=== PATIENT | female | born 1955 | race African-American/Black ===

== ENCOUNTER 2020-07-28 09:28 | Day surgery (SDC) | payer BC ==
[2020-07-28] VITALS (8 sets, daily range): BP systolic 117–133; BP diastolic 64–76
[~2020-07-28] VITALS: Ht 172.7 cm; Wt 72.6 kg
[~2020-07-28 09:28] MED LIST: LOSARTAN POTASS50 MG ORAL; LR 1000ml 1,000 ML IVLG SCH; METHOTREXATE2.5 MG PO; SULFASALAZINE500 MG ORAL; XELJANZ XR22 MG PO
[2020-07-28] MEDS ORDERED: LR 1000ml ONE (10:00)
[2020-07-28] MEDS ORDERED: Lidocaine 1% MPF 10mg/ml 5ml ONE (10:00)
--- NOTE | 2020-07-28 10:06 | Short Stay Surgery H&P ---
History of Present Illness History of Present Illness Chief Complaint see H&P attached HPI Jennifer Burgess is a 64 year old female who was admitted on for Abdominal Pain, History Of Colon Pollups Patient History Allergies: Coded Allergies: Cultivated Oat Pollen (Verified Allergy, Severe, sneezing, rash , 07/25/20) Dust (Verified Allergy, Severe, sneezing, rash, 07/25/20) SHELLFISH DERIVED (Verified Allergy, Severe, anaphylactic shock, 07/25/20) Medication History Scheduled Losartan Potassium* (Losartan Potassium*), 50 MG ORAL DAILY, (Reported) Methotrexate Sodium* (Methotrexate*), 2.5 MG PO ONCE A WEEK, (Reported) Sulfasalazine* (Azulfidine*), 500 MG ORAL BID, (Reported) Miscellaneous Medications Tofacitinib Citrate (Xeljanz Xr), 11 MG PO, (Reported) Physical Exam Vital Signs Last Vital Signs Date Time Temp Pulse Resp B/P (MAP) Pulse Ox O2 Delivery O2 Flow Rate FiO2 07/28/20 09:58 97.9 63 18 133/72 100 Room Air Plan Attestation Are the patient's medical conditions optimized for surgery? Boris Calix MD Jul 28, 2020 10:06
--- NOTE | 2020-07-28 10:07 | Pre-Procedure Note/Attestation ---
Pre-Procedure Note/Attestation Complete Prior to Procedure Planned Procedure: not applicable Procedure Narrative: esophagogastroduodenoscopy colon Indications for Procedure Pre-Operative Diagnosis: abd pain h/o polyp Attestation I attest that I discussed the nature of the procedure; its benefits; risks and complications; and alternatives (and the risks and benefits of such alternatives ), prior to the procedure, with the patient (or the patient's legal field marketing representative). I attest that, if there was a reasonable possibility of needing a blood transfusion, the patient (or the patient's legal field marketing representative) was given the [facility] standardized written summary, pursuant to the [place] Blood Safety Act ([place] Health and Safety Code # 1645, as amended). I attest that I re-evaluated the patient just prior to the surgery and that there has been no change in the patient's H&P, except as documented below: Boris Calix MD Jul 28, 2020 10:07
--- NOTE | 2020-07-28 10:49 | Endoscopy Procedure Note ---
Endoscopy Procedure Note General Indication for Procedure: abd pain, h/o polyp Procedures Performed: EGD, colonoscopy Operative Findings/Diagnosis: antrum gastritis, rare tic, dim polyp x2 Specimen: yes Pt Tolerated Procedure Well: Yes Estimated Blood Loss: none Anesthesia Anesthesiologist: SAMIRA Anesthesia: MAC Medications Medication Given: see anesthesia record Inserted Devices Implant(s) used?: No GI Core Measures 50 yrs or older w/o bx or poly: Not Applicable 10yrs. F/U recommended: Not Applicable Boris Calix MD Jul 28, 2020 10:49
--- NOTE | 2020-07-28 10:50 | Brief Operative Note ---
Immediate Post Operative Note Operative Note Chief Complaint: abd pain , h/o polyp Pre-op Diagnosis: abd pain h/o polyp Procedure: esophagogastroduodenoscopy bx, colo bx Specimen: yes Complications: none Fluids: per anesthesia Implant(s) used?: No Boris Calix MD Jul 28, 2020 10:50
--- NOTE | 2020-07-28 10:51 | Immediate Post-Op Evaluation ---
Immediate Post-Op Evalulation Immediate Post-Op Evalulation Procedure: EGD/Colonoscopy Date of Evaluation: Jul 28, 2020 Time of Evaluation: 10:51 IV Fluids: 800 Blood Pressure Systolic: 120 Blood Pressure Diastolic: 64 Pulse Rate: 54 Respiratory Rate: 14 O2 Sat by Pulse Oximetry: 99 Temperature (Fahrenheit): 97.9 Nausea: No Vomiting: No Complications none Patient Status: awake, reacts, patent Hydration Status: adequate Drug: none Terese Lemon CRNA Jul 28, 2020 10:51
--- NOTE | 2020-07-28 10:53 | Anethesia Preoperative Eval ---
Anesthesia Pre-op PMH/ROS General Date of Evaluation: Jul 28, 2020 Time of Evaluation: 10:00 Anesthesiologist: alex ASA Score: ASA 2 Mallampati Score Class I : Soft palate, uvula, fauces, pillars visible Class II: Soft palate, uvula, fauces visible Class III: Soft palate, base of uvula visible Class IV: Only hard plate visible Mallampati Classification: Class II Surgeon: jake Diagnosis: screening Surgical Procedure: EGD/Colonoscopy Anesthesia History: none Family History: no anesthesia problems Allergies: Coded Allergies: Cultivated Oat Pollen (Verified Allergy, Severe, sneezing, rash , 07/25/20) Dust (Verified Allergy, Severe, sneezing, rash, 07/25/20) SHELLFISH DERIVED (Verified Allergy, Severe, anaphylactic shock, 07/25/20) Medications: see eMAR Patient NPO?: Yes NPO Date: Jul 28, 2020 NPO Time: 00:01 Past Medical History Cardiovascular: Reports: HTN; Denies: CAD, [place], valve dz, arrhythmia, other Pulmonary: Denies: asthma, COPD, [place], other Gastrointestinal/Genitourinary: Reports: GERD; Denies: CRI, ESRD, other Neurologic/Psychiatric: Denies: dementia, CVA, depression/anxiety, TIA, other Endocrine: Denies: DM, hypothyroidism, steroids, other HEENT: Denies: cataract (L), cataract (R), glaucoma, [place] (L), [place] (R), other Hematology/Immune: Denies: anemia, DVT, bleeding disorder, other Musculoskeletal/Integumentary: Denies: OA, RA, DJD, DDD, edema, other Anesthesia Pre-op Phys. Exam Physician Exam Last Vital Signs Date Time Temp Pulse Resp B/P (MAP) Pulse Ox O2 Delivery O2 Flow Rate FiO2 07/28/20 10:06 Room Air 07/28/20 09:58 97.9 63 18 133/72 100 Constitutional: NAD Neurologic: CN 2-12 intact Cardiovascular: RRR Respiratory: CTA Gastrointestinal: S/NT/ND Airway Exam Mallampati Classification 2 Mallampati Score: Class II MO: full ROM: full Dentures: no upper, no lower Anesthesia Pre-op A/P Studies Pre-op Studies: EKG - SR Risk Assessment & Plan Assessment: covid neg Plan: mac Status Change Before Surgery: No Pre-Antibiotics Drug: none Terese Lemon CRNA Jul 28, 2020 10:53
--- NOTE | 2020-07-28 12:03 | 48 Hour Post Anesthesia Eval ---
Post Anesthesia Evaluation Procedure: EGD/Colonoscopy Date of Evaluation: Jul 28, 2020 Time of Evaluation: 12:02 Blood Pressure Systolic: 125 0: 76 Pulse Rate: 54 Respiratory Rate: 14 O2 Sat by Pulse Oximetry: 98 Airway: patent Nausea: No Vomiting: No Hydration Status: adequate Mental Status/LOC: patient returned to baseline Follow-up Care/Observations: na Post-Anesthesia Complications: none Follow-up care needed: N/A Terese Lemon CRNA Jul 28, 2020 12:03
--- NOTE | 2020-07-28 14:14 | Procedure Note ---
DATE OF PROCEDURE: 07/28/2020 PROCEDURE: Upper gastrointestinal endoscopy with biopsy as well as colonoscopy with biopsy. SURGEON: Boris Calix MD. ANESTHESIA: Please see the separate notes for anesthesia services. PRE-ENDOSCOPIC DIAGNOSES: Abdominal pain and history of colon polyps. POST-ENDOSCOPIC DIAGNOSES: 1. Mild antral gastritis with small bits of blood seen, status post random biopsies of the duodenum, antrum, and lower esophagus. 2. Normal terminal ileum to about 15 cm status post biopsy. 3. Rare diverticulosis. 4. Diminutive polyp seen in the distal descending colon at 35 cm and sigmoid colon at 15 cm status post biopsy removal. 5. Status post random biopsies of the right colon, left colon, and rectosigmoid colon. DESCRIPTION OF PROCEDURE: The procedure its risks, indications, alternatives, and possible complications were explained to the patient and informed consent was obtained. The patient was then sedated in the left lateral decubitus position and a diagnostic upper endoscope was introduced through oropharynx and advanced to the duodenum. It was gradually withdrawn and mucosa examined carefully. The rectal exam was then done and colonoscope was introduced in the rectum and advanced to 15 cm into the terminal ileum. The colonoscope was then gradually withdrawn and mucosa examined carefully. Findings are as listed above and biopsies were performed and listed above. Retroflexed view of the rectum was unremarkable. The colonoscope was removed. The patient was sent to recovery in good condition. COMPLICATIONS: None. RECOMMENDATIONS: 1. Followup biopsy results. 2. Outpatient followup. Boris Calix M.D. DR: Carson JOB#: [id number] CC: Boris Calix M.D.; Fax#: [phone]
== END 2020-07-28 11:55 | disposition home or self-care (01) ==
LOC: GAS 09:28
DX: R10.9 Unspecified abdominal pain (principal); Z86.010 Personal history of colon polyps; K57.90 Diverticulosis of intestine, part unspecified, without perforation or abscess without bleeding; K29.70 Gastritis, unspecified, without bleeding; K63.5 Polyp of colon; Z91.013 Allergy to seafood; Z91.018 Allergy to other foods; Z91.048 Other nonmedicinal substance allergy status; Z79.899 Other long term (current) drug therapy; I10 Essential (primary) hypertension; K21.9 Gastro-esophageal reflux disease without esophagitis
CPT/HCPCS: 43239; 45380; 94003; J2704; J7120; U0002; 94150